=== PATIENT | female | born 1950 | race Caucasian/White ===

== ENCOUNTER → 2017-06-16 | Outpatient (CLI) | payer MEDICARE, BC ==
[2014-11-21 06:31] VITALS: BP 146/86
[~2017-06-16] MED LIST: ADVIL200 MG PO; AMOXICILLIN875 MG PO; CHILDREN'S ASPI81 M1 PO; D-31000 IU PO; DOXYCYCLINE 10100 MG PO; FLONASE NASAL S16 GM NS; MULTIPLE VITAMI1 CAP PO; SPIRIVA18 MCG IH; TUMS ULTRA1000 MG PO; VENTOLIN0.09 MG IH
== END ==
LOC: MAMMO 08:53 → RAD 09:15 → MAMMO 09:15
DX: Z12.31 Encounter for screening mammogram for malignant neoplasm of breast (principal)
CPT/HCPCS: G0202

== ENCOUNTER → 2017-06-16 | Outpatient (CLI) | payer MEDICARE, BC ==
[2014-11-21 06:31] VITALS: BP 146/86
[2017-06-16 10:52] LABS: EOS # 0.1 (0.04-0.40); EOS % 1.9 % (1.0-5.0); HEMATOCRIT 43.9 % (37.0-47.0); HEMOGLOBIN 14.4 g/dL (12.5-16.0); LYMPH# 2.2 (1.50-4.00); MEAN CELL VOLUME 94 fl (78-100); MEAN CORPUSCULAR HEMOGLOBIN 31 pg (27-31); MEAN CORPUSCULAR HGB CONC 33 g/dL (33-37); MEAN PLATELET VOLUME 9.8 fl (7.4-10.4); MONO # 0.5 (0.20-0.80); PLATELET COUNT 343 K/mm3 (130-400); RED BLOOD COUNT 4.69 M/mm3 (4.10-5.30); RED CELL DISTRIBUTION WIDTH 13.4 % (11.5-14.5); WHITE BLOOD COUNT 6.9 K/mm3 (4.8-10.8)
[2017-06-16 11:01] LABS: BUN/CREATININE RATIO 18.2 (6.0-26.0); CALCIUM 9.2 mg/dL (8.4-10.2); POTASSIUM 4.3 mmol/L (3.6-5.0); TOTAL BILIRUBIN 0.6 mg/dL (0.2-1.3)
== END ==
LOC: LAB 10:30
PROVIDERS: Nurse Practitioner Family
DX: Z13.220 Encounter for screening for lipoid disorders (principal); Z12.11 Encounter for screening for malignant neoplasm of colon; J43.2 Centrilobular emphysema; J01.41 Acute recurrent pansinusitis; Z88.1 Allergy status to other antibiotic agents

== ENCOUNTER 2017-12-07 07:32 | Emergency (ER) | payer MEDICARE, BC ==
[~2017-12-07] VITALS: Ht 170.2 cm; Wt 72.7 kg
[~2017-12-07 07:32] MED LIST changes: -D-31000 IU PO; +TUMS ULTRA ST1000 MG PO; -TUMS ULTRA1000 MG PO; +VITAMIN D32000 UNI1 PO
[2017-12-07 08:11] LABS: EOS # 0.1 (0.04-0.40); EOS % 0.7 % (1.0-5.0); HEMATOCRIT 44.9 % (37.0-47.0); HEMOGLOBIN 14.7 g/dL (12.5-16.0); LYMPH# 1.9 (1.50-4.00); MEAN CELL VOLUME 92 fl (78-100); MEAN CORPUSCULAR HEMOGLOBIN 30 pg (27-31); MEAN CORPUSCULAR HGB CONC 33 g/dL (33-37); MEAN PLATELET VOLUME 9.6 fl (7.4-10.4); MONO # 0.5 (0.20-0.80); NEU # 5.1 (1.40-6.50); PLATELET COUNT 314 K/mm3 (130-400); RED BLOOD COUNT 4.88 M/mm3 (4.10-5.30); WHITE BLOOD COUNT 7.5 K/mm3 (4.8-10.8)
[2017-12-07 08:22] LABS: ALBUMIN 3.9 g/dL (3.5-5.0); BUN/CREATININE RATIO 23.7 (6.0-26.0); CALCIUM 8.7 mg/dL (8.4-10.2); POTASSIUM 4.1 mmol/L (3.6-5.0); TOTAL BILIRUBIN 0.3 mg/dL (0.2-1.3); TOTAL PROTEIN 7.1 g/dL (6.3-8.2)
[2017-12-07 10:13] VITALS: BP 158/85
== END 2017-12-07 10:18 | disposition home or self-care (01) ==
LOC: ED 07:32
PROVIDERS: Family Medicine
DX: I10 Essential (primary) hypertension (principal); F41.9 Anxiety disorder, unspecified; J44.9 Chronic obstructive pulmonary disease, unspecified; F17.200 Nicotine dependence, unspecified, uncomplicated; Z79.82 Long term (current) use of aspirin; Z79.899 Other long term (current) drug therapy

== ENCOUNTER → 2018-06-16 | Outpatient (CLI) | payer MEDICARE, BC | LOC: MAMMO 08:38 | DX: Z12.31 Encounter for screening mammogram for malignant neoplasm of breast (principal) ==

== ENCOUNTER → 2018-06-16 | Outpatient (CLI) | payer MEDICARE, BC ==
[2018-06-16 10:37] LABS: EOS # 0.2 (0.04-0.40); EOS % 2.1 % (1.0-5.0); HEMATOCRIT 43.2 % (37.0-47.0); HEMOGLOBIN 14.1 g/dL (12.5-16.0); LYMPH# 2.5 (1.50-4.00); MEAN CELL VOLUME 92 fl (78-100); MEAN CORPUSCULAR HEMOGLOBIN 30 pg (27-31); MEAN CORPUSCULAR HGB CONC 33 g/dL (33-37); MEAN PLATELET VOLUME 9.6 fl (7.4-10.4); MONO # 0.6 (0.20-0.80); PLATELET COUNT 310 K/mm3 (130-400); RED BLOOD COUNT 4.68 M/mm3 (4.10-5.30); RED CELL DISTRIBUTION WIDTH 13.8 % (11.5-14.5); WHITE BLOOD COUNT 7.3 K/mm3 (4.8-10.8)
[2018-06-16 10:48] LABS: ALBUMIN 4.2 g/dL (3.5-5.0); TOTAL BILIRUBIN 0.4 mg/dL (0.2-1.3); TOTAL PROTEIN 6.7 g/dL (6.3-8.2)
== END ==
LOC: LAB 10:19
PROVIDERS: Family Medicine
DX: Z00.00 Encounter for general adult medical examination without abnormal findings (principal); E55.9 Vitamin D deficiency, unspecified

== ENCOUNTER → 2019-07-04 | Outpatient (CLI) | payer MEDICARE, BC ==
[2019-07-04 10:49] LABS: EOS # 0.1 (0.04-0.40); EOS % 1.2 % (1.0-5.0); HEMATOCRIT 45.7 % (37.0-47.0); HEMOGLOBIN 14.5 g/dL (12.5-16.0); LYMPH# 2.4 (1.50-4.00); MEAN CELL VOLUME 93 fl (78-100); MEAN CORPUSCULAR HEMOGLOBIN 30 pg (27-31); MEAN CORPUSCULAR HGB CONC 32 g/dL (33-37); MEAN PLATELET VOLUME 9.4 fl (7.4-10.4); MONO # 0.6 (0.20-0.80); NEU # 4.4 (1.40-6.50); PLATELET COUNT 357 K/mm3 (130-400); RED BLOOD COUNT 4.91 M/mm3 (4.10-5.30); RED CELL DISTRIBUTION WIDTH 13.8 % (11.5-14.5); WHITE BLOOD COUNT 7.5 K/mm3 (4.8-10.8)
[2019-07-04 10:57] LABS: POTASSIUM 3.9 mmol/L (3.5-5.1)
[2019-07-04 10:58] LABS: ALBUMIN 4.3 g/dL (3.4-4.8)
[2019-07-04 10:59] LABS: CALCIUM 9.7 mg/dL (8.3-10.5)
[2019-07-04 11:00] LABS: TOTAL PROTEIN 7.2 g/dL (6.2-8.1)
[2019-07-04 11:02] LABS: TOTAL BILIRUBIN 0.4 mg/dL (0.2-1.2)
== END ==
LOC: LAB 10:37
PROVIDERS: Family Medicine
DX: Z00.00 Encounter for general adult medical examination without abnormal findings (principal); I10 Essential (primary) hypertension; E55.9 Vitamin D deficiency, unspecified

== ENCOUNTER → 2020-01-03 | Outpatient (CLI) | payer MEDICARE, BC | LOC: LAB 01-02 13:36 | DX: R05 Cough (principal); R06.02 Shortness of breath; R53.83 Other fatigue; Z20.828 Contact with and (suspected) exposure to other viral communicable diseases ==

== ENCOUNTER 2020-02-03 20:49 | Emergency (ER) | payer MEDICARE, BC ==
[~2020-02-03] VITALS: Ht 170.2 cm; Wt 72.7 kg
[~2020-02-03 20:49] MED LIST changes: +ADVIL 200MG TA200 MG PO; -ADVIL200 MG PO; +ASPIRIN E.C. 8181 MG PO; -CHILDREN'S ASPI81 M1 PO; +FLONASE ALLERG9.9 ML NS; -FLONASE NASAL S16 GM NS; -MULTIPLE VITAMI1 CAP PO; +MULTIPLE VITAMI1 TA1 PO; +RT SPIRIVA INH18 MCG IH; -SPIRIVA18 MCG IH; +VITAMIN D3125 MC1 PO; -VITAMIN D32000 UNI1 PO
[2020-02-03] MEDS ORDERED: PROAIR HFA0.09 MG/AC IH (21:01)
[2020-02-03] MEDS ORDERED: CELEBREX 1100 MG/CAP PO (21:01)
[2020-02-03] MEDS ORDERED: LISINOPRIL10 MG PO (23:33)
[2020-02-03] MEDS ORDERED: IPRATROPIUM BROM3 M1 IH (23:33)
[2020-02-03] MEDS ORDERED: BACLOFEN5 MG PO (23:33)
[2020-02-03 23:52] VITALS: BP 122/67
== END 2020-02-03 23:52 | disposition home or self-care (01) ==
LOC: ED 20:49
DX: J44.9 Chronic obstructive pulmonary disease, unspecified (principal); I10 Essential (primary) hypertension; M54.2 Cervicalgia; F41.9 Anxiety disorder, unspecified; F17.210 Nicotine dependence, cigarettes, uncomplicated; Z79.82 Long term (current) use of aspirin; Z79.51 Long term (current) use of inhaled steroids

== ENCOUNTER 2020-02-07 09:07 | Emergency (ER) | payer MEDICARE, BC ==
[~2020-02-07] VITALS: Wt 78.2 kg
[~2020-02-07 09:07] MED LIST changes: +BACLOFEN5 MG PO; +CELEBREX 1100 MG/CAP PO; +IPRATROPIUM BROM3 M1 IH; +LISINOPRIL10 MG PO; +PROAIR HFA0.09 MG/AC IH
[2020-02-07 09:37] LABS: EOS # 0.3 (0.04-0.40); EOS % 3.1 % (1.0-5.0); HEMOGLOBIN 14.3 g/dL (12.5-16.0); LYMPH# 1.7 (1.50-4.00); MEAN CELL VOLUME 93 fl (78-100); MEAN CORPUSCULAR HEMOGLOBIN 30 pg (27-31); MEAN CORPUSCULAR HGB CONC 33 g/dL (33-37); MEAN PLATELET VOLUME 9.6 fl (7.4-10.4); MONO # 0.6 (0.20-0.80); NEU # 5.6 (1.40-6.50); PLATELET COUNT 311 K/mm3 (130-400); RED BLOOD COUNT 4.73 M/mm3 (4.10-5.30); WHITE BLOOD COUNT 8.2 K/mm3 (4.8-10.8)
[2020-02-07 09:52] LABS: ALBUMIN 3.9 g/dL (3.4-4.8)
[2020-02-07 09:53] LABS: POTASSIUM 4.7 mmol/L (3.5-5.1); SODIUM 136 mmol/L (136-145)
[2020-02-07 09:54] LABS: CALCIUM 9.1 mg/dL (8.3-10.5)
[2020-02-07 09:55] LABS: GLUCOSE 117 mg/dL (65-105); TOTAL PROTEIN 7.1 g/dL (6.2-8.1)
[2020-02-07 09:56] LABS: CARBON DIOXIDE 26 mmol/L (23-31)
[2020-02-07 09:57] LABS: TOTAL BILIRUBIN 0.3 mg/dL (0.2-1.2)
[2020-02-07 10:00] LABS: AST-SGOT 25 U/L (5-34)
[2020-02-07 10:01] LABS: ALT/SGPT 15 U/L (0-55)
[2020-02-07 10:15] LABS: TROPONIN-I < 0.03 ng/mL (<0.030)
[2020-02-07 11:27] VITALS: BP 157/78
[2020-02-07] MEDS ORDERED: LISINOPRIL10 MG PO (12:44)
[2020-02-08] MEDS ORDERED: NORCO 325 MG-7.1 TA1 PO ×2 (10:52)
== END 2020-02-07 11:45 | disposition other institution (70) ==
LOC: ED 09:07
PROVIDERS: Nurse Practitioner Primary Care
DX: J44.1 Chronic obstructive pulmonary disease with (acute) exacerbation (principal); I10 Essential (primary) hypertension; Z79.82 Long term (current) use of aspirin
CPT/HCPCS: J2060; J2930; Q9967

== ENCOUNTER 2020-02-07 11:16 | Inpatient (IN) | payer MEDICARE, BC ==
[~2020-02-07] VITALS: Ht 170.2 cm; Wt 78.5 kg
[2020-02-07] MEDS ORDERED: LISINOPRIL10 MG PO (12:44)
[2020-02-07 14:13] VITALS: BP 141/81
[2020-02-07 14:52] VITALS: BP 128/79
[2020-02-07 14:57] VITALS: BP 157/78
[2020-02-07 18:19] VITALS: BP 135/81
[2020-02-07 20:00] VITALS: BP 133/75
[2020-02-07 22:10] VITALS: BP 112/71
[2020-02-08 01:40] VITALS: BP 143/68
[2020-02-08 06:00] VITALS: BP 117/72
[2020-02-08 10:31] VITALS: BP 121/74
[2020-02-08] MEDS ORDERED: NORCO 325 MG-7.1 TA1 PO ×2 (10:52)
[2020-02-08 14:30] VITALS: BP 116/62
[2020-02-08 17:59] VITALS: BP 121/70
[2020-02-08 21:11] VITALS: BP 120/73
[2020-02-09 05:46] VITALS: BP 137/81
[2020-02-09 10:02] VITALS: BP 123/73
[2020-02-09 15:19] VITALS: BP 132/72
[2020-02-09 18:49] VITALS: BP 142/80
[2020-02-09 21:27] VITALS: BP 135/84
[2020-02-10 01:45] VITALS: BP 142/84
[2020-02-10 05:40] VITALS: BP 131/79
[2020-02-10 10:07] VITALS: BP 118/72
[2020-02-10] MEDS ORDERED: AZITHROMYCIN 250MGPK PO (14:19)
[2020-02-10] MEDS ORDERED: PREDNISONE10 MG PO (14:22)
[2020-02-10] MEDS ORDERED: IPRATROPIUM BROM3 M1 IH (14:23)
[2020-02-10 14:32] VITALS: BP 138/83
[2020-02-10] MEDS ORDERED: ATIVAN0.5 MG PO (15:21)
== END 2020-02-10 17:17 | disposition home or self-care (01) | DRG 192 ==
LOC: MED/SURG 11:16
PROVIDERS: ADMIT Nurse Practitioner Primary Care
DX: J44.1 Chronic obstructive pulmonary disease with (acute) exacerbation (principal); I10 Essential (primary) hypertension; M19.90 Unspecified osteoarthritis, unspecified site; R09.02 Hypoxemia; F41.9 Anxiety disorder, unspecified; F17.210 Nicotine dependence, cigarettes, uncomplicated; Z66 Do not resuscitate; Z79.82 Long term (current) use of aspirin; Z88.1 Allergy status to other antibiotic agents
CPT/HCPCS: C9113; J0456; J1650; J2930; J7050; J7512

== ENCOUNTER → 2020-04-25 | Outpatient (CLI) | payer MEDICARE, BC ==
[~2020-04-25] MED LIST changes: +ATIVAN0.5 MG PO; +AZITHROMYCIN 250MGPK PO; +BREZTRI AEROS10.7 GM IH; +NORCO 325 MG-7.1 TA1 PO; +PREDNISONE10 MG PO; +ZESTRIL5 M1 PO
== END ==
LOC: LAB 11:11
DX: J32.9 Chronic sinusitis, unspecified (principal)

== ENCOUNTER 2020-04-26 10:43 | Emergency (ER) | payer MEDICARE, BC ==
[~2020-04-26] VITALS: Ht 170.2 cm; Wt 80.9 kg
[~2020-04-26 10:43] MED LIST changes: -BREZTRI AEROS10.7 GM IH; -ZESTRIL5 M1 PO
[2020-04-26] MEDS ORDERED: BREZTRI AEROS10.7 GM IH (10:59)
[2020-04-26] MEDS ORDERED: ZESTRIL5 M1 PO (10:59)
[2020-04-26 12:00] LABS: EOS # 0.1 (0.04-0.40); EOS % 1.6 % (1.0-5.0); HEMATOCRIT 40.7 % (37.0-47.0); HEMOGLOBIN 12.6 g/dL (12.5-16.0); LYMPH# 1.8 (1.50-4.00); MEAN CELL VOLUME 98 fl (78-100); MEAN CORPUSCULAR HEMOGLOBIN 30 pg (27-31); MEAN CORPUSCULAR HGB CONC 31 g/dL (33-37); MEAN PLATELET VOLUME 8.9 fl (7.4-10.4); MONO # 0.6 (0.20-0.80); NEU # 5.4 (1.40-6.50); PLATELET COUNT 386 K/mm3 (130-400); RED BLOOD COUNT 4.15 M/mm3 (4.10-5.30); RED CELL DISTRIBUTION WIDTH 14.1 % (11.5-14.5)
[2020-04-26 12:12] LABS: ALBUMIN 4.2 g/dL (3.4-4.8); POTASSIUM 4.2 mmol/L (3.5-5.1); SODIUM 139 mmol/L (136-145)
[2020-04-26 12:13] LABS: CALCIUM 9.6 mg/dL (8.3-10.5)
[2020-04-26 12:14] LABS: GLUCOSE 95 mg/dL (65-105); TOTAL PROTEIN 7.4 g/dL (6.2-8.1)
[2020-04-26 12:15] LABS: CARBON DIOXIDE 28 mmol/L (23-31)
[2020-04-26 12:16] LABS: TOTAL BILIRUBIN 0.4 mg/dL (0.2-1.2)
[2020-04-26 12:17] LABS: D-DIMER 0.69 mg/L FEU (0.15-0.50)
[2020-04-26 12:19] LABS: AST-SGOT 28 U/L (5-34)
[2020-04-26 12:21] LABS: ALT/SGPT 28 U/L (0-55)
[2020-04-26 12:29] LABS: TROPONIN-I < 0.03 ng/mL (<0.030)
[2020-04-26 12:31] LABS: URINE APPEARANCE CLEAR; URINE BILIRUBIN NEGATIVE (NEGATIVE); URINE BLOOD TRACE (NEGATIVE); URINE COLOR YELLOW; URINE GLUCOSE NEGATIVE (NEGATIVE); URINE KETONE NEGATIVE (NEGATIVE); URINE LEUKOCYTE ESTERASE NEGATIVE (NEGATIVE); URINE NITRATE NEGATIVE (NEGATIVE); URINE PROTEIN(semi-quant) TRACE mg/dL (NEGATIVE); URINE UROBILINOGEN NORMAL (NORMAL)
[2020-04-26] MEDS ORDERED: PREDNISONE10 MG PO (12:55)
[2020-04-26] MEDS ORDERED: AZITHROMYCIN 250MGPK PO (13:00)
[2020-04-26 13:04] LABS: ERYTHROCYTE SEDIMENTATION RATE 43 mm/hr (0-30)
[2020-04-26 13:24] VITALS: BP 143/86
== END 2020-04-26 13:06 | disposition home or self-care (01) ==
LOC: ED 10:43
PROVIDERS: Nurse Practitioner Family
DX: J44.1 Chronic obstructive pulmonary disease with (acute) exacerbation (principal); R06.00 Dyspnea, unspecified; I10 Essential (primary) hypertension; Z20.828 Contact with and (suspected) exposure to other viral communicable diseases; Z87.891 Personal history of nicotine dependence; Z88.1 Allergy status to other antibiotic agents
CPT/HCPCS: J2930; J7030

== ENCOUNTER 2020-05-14 15:51 | Observation (INO) | payer MEDICARE, BC ==
[~2020-05-14] VITALS: Ht 170.2 cm; Wt 80.5 kg
[~2020-05-14 15:51] MED LIST changes: +BREZTRI AEROS10.7 GM IH; +ZESTRIL5 M1 PO
[2020-05-14 17:29] VITALS: BP 136/79
[2020-05-14 17:39] VITALS: BP 136/79
[2020-05-14] MEDS ORDERED: PREDNISONE10 MG PO (17:43)
[2020-05-14] MEDS ORDERED: MUCINEX1200 MG PO (17:44)
[2020-05-14 18:01] VITALS: BP 136/79
--- NOTE | 2020-05-14 19:32 | NUR ---
Report received from Jennifer PIERRE. Patient resting supine in bed with HOB elevated 30 degrees. A/O x4. Denies pain except "sore" in L nare where Rhino Rocket is in place. No active bleeding noted to L nare. Oxygen applied at 2L/NC per home routine. Uses home inhaler, time changed to home schedule of . Assessment completed. Bed alarm on. Call light in reach.
[2020-05-14 22:29] VITALS: BP 111/69
--- NOTE | 2020-05-14 23:29 | NUR ---
Requesting additional Tylenol for neck and head pain. Advised would have to wait another hour for next dose. States "I coughed up my stuff and passed a blood clot, probably from here (points to R nare). Has some intermittent oozing from L nare where rhino rocket is placed. Warren Garrett APRN notified of above. NNO at this time. Continue to monitor.
--- NOTE | 2020-05-15 00:30 | NUR ---
Continues to have neck/head ache. L nare painful with rhino rocket in place. Medicated with Tylenol at this time.
[2020-05-15 01:58] VITALS: BP 126/73
--- NOTE | 2020-05-15 02:00 | NUR ---
C/O'S nausea, requests and given saltine crackers. [employer] reports patient takes oxygen off intermittently. SAO2 93% on RA.
--- NOTE | 2020-05-15 03:33 | NUR ---
Up to BR with SBA. Gait steady. States crackers helped upset stomach. Continues to have head/neck pain 5/10. Utilizing Tylenol PRN. Rhino Rocket in place to Darryl darnell.
--- NOTE | 2020-05-15 05:48 | NUR ---
AM medications taken. Offered Tylenol for H/A and neck pain. Declined. States "it makes me crazy". States neck pain has improved. Rhino rocket in place to L nare with oozing at times.
[2020-05-15 06:00] VITALS: BP 107/70
[2020-05-15 06:01] LABS: EOS # 0.1 (0.04-0.40); EOS % 1.4 % (1.0-5.0); HEMATOCRIT 28.8 % (37.0-47.0); HEMOGLOBIN 8.7 g/dL (12.5-16.0); LYMPH# 2.3 (1.50-4.00); MEAN CELL VOLUME 99 fl (78-100); MEAN CORPUSCULAR HEMOGLOBIN 30 pg (27-31); MEAN CORPUSCULAR HGB CONC 30 g/dL (33-37); MEAN PLATELET VOLUME 9.4 fl (7.4-10.4); MONO # 0.9 (0.20-0.80); NEU # 6.3 (1.40-6.50); PLATELET COUNT 325 K/mm3 (130-400); RED BLOOD COUNT 2.92 M/mm3 (4.10-5.30); RED CELL DISTRIBUTION WIDTH 14.1 % (11.5-14.5); WHITE BLOOD COUNT 9.6 K/mm3 (4.8-10.8)
--- NOTE | 2020-05-15 07:01 | NUR ---
Report to Nichol PIERRE.
--- NOTE | 2020-05-15 08:30 | NUR ---
Octavio Cox APRN notified of Hgb drop to 8.7
[2020-05-15 10:14] VITALS: BP 130/80
[2020-05-15 13:44] VITALS: BP 117/43
--- NOTE | 2020-05-15 13:58 | NUR ---
Octavio Cox APRN and Riley Saleh PA-C at bedside. Both notified of patient's c/o headache and anxiety r/t the unknown with being hospitalized.
[2020-05-15 17:34] VITALS: BP 125/85
--- NOTE | 2020-05-15 19:00 | NUR ---
Report received from Nichol PIERRE. Patient resting supine in bed with HOB elevated 45 degrees. [address] rocket in place to L nare with some oozing of blood noted. Oxygen in place at 2L/NC. Continues to have headache 5/10, states neck pain improved with heat pad. Assessment completed. Up to BR with SBA, gait steady with no device. Voids 125 ML of clear yellow urine. Back to bed. Provider notified of continued H/A and patient refusal to take Tylenol because it makes her "crazy".
--- NOTE | 2020-05-15 20:09 | NUR ---
Scheduled HS medications given now. PRN Ativan and Tramadol 50 MG given for pain and sleep.
[2020-05-15 21:50] VITALS: BP 112/67
--- NOTE | 2020-05-15 21:53 | NUR ---
Requests 2nd Tramadol. States H/A is down to 09/05 but still "throbbing" States she slept for an hour after first Tramadol and Ativan given.
--- NOTE | 2020-05-16 00:44 | NUR ---
Report to Paula PIERRE.
[2020-05-16 01:26] VITALS: BP 131/71
[2020-05-16 05:03] VITALS: BP 134/69
[2020-05-16 05:55] LABS: EOS # 0.2 (0.04-0.40); EOS % 1.7 % (1.0-5.0); HEMATOCRIT 27.5 % (37.0-47.0); HEMOGLOBIN 8.4 g/dL (12.5-16.0); LYMPH# 2.7 (1.50-4.00); MEAN CELL VOLUME 100 fl (78-100); MEAN CORPUSCULAR HEMOGLOBIN 31 pg (27-31); MEAN CORPUSCULAR HGB CONC 31 g/dL (33-37); MEAN PLATELET VOLUME 9.3 fl (7.4-10.4); MONO # 1.2 (0.20-0.80); NEU # 6.3 (1.40-6.50); PLATELET COUNT 310 K/mm3 (130-400); RED BLOOD COUNT 2.75 M/mm3 (4.10-5.30); RED CELL DISTRIBUTION WIDTH 14.3 % (11.5-14.5); WHITE BLOOD COUNT 10.4 K/mm3 (4.8-10.8)
--- NOTE | 2020-05-16 06:34 | NUR ---
THIS NURSE IN ROOM. INHALER ADMINISTERED PER ORDER. PATIENT'S RHINO ROCKET IN PLACE. NO ACTIVE BLEEDING. PATIENT DENIES ANY PAIN OR DISCOMFORTS. CALL LIGHT WITHIN REACH. BED ALARM ON.
--- NOTE | 2020-05-16 08:35 | NUR ---
RHINO ROCKET REMOVED BY KAI SALDIVAR AT THIS TIME, PT TOLERATED REMOVAL WELL, NO BLEEDING AT THIS TIME
[2020-05-16 09:47] VITALS: BP 112/76
--- NOTE | 2020-05-16 11:52 | NUR ---
PT AMBULATING IN HALLS, NO BLEEDING TO LEFT NARE UPON REMOVE OF RHINO ROCKET, HOME O2 [employer] DELIVERED A "HUMIDIFIER" FOR HOME O2 USE PER PT REQUEST, HEAT PAD APPLIED TO NECK FOR CHRONIC PAIN, DENIES FURTHER NEEDS AT THIS TIME
[2020-05-16] MEDS ORDERED: FLONASE ALLERG9.9 ML NS (12:35)
[2020-05-16 14:12] VITALS: BP 121/76
--- NOTE | 2020-05-16 15:10 | NUR ---
DC INSTRUCTIONS REVIEWED WITH PATIENT. ID BAND REMOVED FROM WRIST. PACKING UP BELONGINGS WITH MOBILE SALES ASSISTANT.
--- NOTE | 2020-05-16 16:10 | NUR ---
PT ESCORTED TO FRONT DOOR VIA WHEELCHAIR, ALL BELONGINGS SENT WITH PT, DENIES FURTHER QUESTIONS OR NEEDS, DAUGHTER PROVIDING TRANSPORTATION HOME, PT STABLE
[2020-05-22] MEDS ORDERED: PREDNISONE10 MG PO (17:12)
== END 2020-05-16 16:12 | disposition home or self-care (01) ==
LOC: MED/SURG 15:55
PROVIDERS: Internal Medicine; ADMIT Physician Assistant
DX: R04.0 Epistaxis (principal); J44.9 Chronic obstructive pulmonary disease, unspecified; I10 Essential (primary) hypertension; Z87.891 Personal history of nicotine dependence; Z88.1 Allergy status to other antibiotic agents; D64.9 Anemia, unspecified
CPT/HCPCS: G0378; G0379; J7512

== ENCOUNTER → 2020-05-22 | Outpatient (CLI) | payer MEDICARE, BC ==
[2020-05-16 14:12] VITALS: BP 121/76
[~2020-05-22] MED LIST changes: +MUCINEX1200 MG PO
[2020-05-22 11:02] LABS: HEMATOCRIT 30.8 % (37.0-47.0); HEMOGLOBIN 9.2 g/dL (12.5-16.0); MEAN PLATELET VOLUME 8.8 fl (7.4-10.4); RED BLOOD COUNT 3.07 M/mm3 (4.10-5.30); WHITE BLOOD COUNT 8.9 K/mm3 (4.8-10.8)
== END ==
LOC: LAB 10:36
PROVIDERS: Physician Assistant
DX: D64.9 Anemia, unspecified (principal)

== ENCOUNTER 2020-07-26 07:33 | Emergency (ER) | payer MEDICARE, BC ==
[2020-07-26] MEDS ORDERED: PREDNISONE10 MG (07:44)
[2020-07-26 08:31] LABS: HEMATOCRIT 42.2 % (37.0-47.0); HEMOGLOBIN 12.8 g/dL (12.5-16.0); MEAN CELL VOLUME 93 fl (78-100); MEAN CORPUSCULAR HEMOGLOBIN 28 pg (27-31); MEAN CORPUSCULAR HGB CONC 30 g/dL (33-37); MEAN PLATELET VOLUME 9.7 fl (7.4-10.4); PLATELET COUNT 335 K/mm3 (130-400); RED BLOOD COUNT 4.53 M/mm3 (4.10-5.30); RED CELL DISTRIBUTION WIDTH 15.4 % (11.5-14.5); WHITE BLOOD COUNT 10.1 K/mm3 (4.8-10.8)
[2020-07-26 08:35] LABS: ALBUMIN 3.9 g/dL (3.4-4.8); POTASSIUM 4.1 mmol/L (3.5-5.1); SODIUM 140 mmol/L (136-145)
[2020-07-26 08:36] LABS: CALCIUM 9.4 mg/dL (8.3-10.5)
[2020-07-26 08:37] LABS: GLUCOSE 97 mg/dL (65-105)
[2020-07-26 08:38] LABS: TOTAL PROTEIN 6.3 g/dL (6.2-8.1)
[2020-07-26 08:39] LABS: CARBON DIOXIDE 32 mmol/L (23-31); TOTAL BILIRUBIN 0.3 mg/dL (0.2-1.2)
[2020-07-26 08:43] LABS: AST-SGOT 19 U/L (5-34)
[2020-07-26 08:44] LABS: ALT/SGPT 22 U/L (0-55)
[2020-07-26 08:47] LABS: D-DIMER 0.34 mg/L FEU (0.15-0.50)
[2020-07-26 08:52] LABS: TROPONIN-I < 0.03 ng/mL (<0.030)
[2020-07-26 09:01] LABS: BAND 1 % (0-10); LYMPHOCYTE 13 % (20-51); MONOCYTE 4 % (3-10); NEUTROPHILS 79 % (42-75); TARGET CELLS 3+
[2020-07-26] MEDS ORDERED: CELEXA 20MG20 MG/TA1 PO (11:39)
[2020-07-26] MEDS ORDERED: CLONAZEPAM0.25 MG PO (11:39)
[2020-07-26 11:55] VITALS: BP 123/71
[2020-07-26 12:14] LABS: URINE WBC 0 /hpf (0-3)
[2020-07-26 12:47] LABS: PH-URINE 6.5 (5.0 - 8.0); URINE APPEARANCE CLEAR; URINE BILIRUBIN NEGATIVE (NEGATIVE); URINE COLOR YELLOW; URINE GLUCOSE NEGATIVE (NEGATIVE); URINE KETONE 1+ (NEGATIVE); URINE NITRATE NEGATIVE (NEGATIVE); URINE PROTEIN(semi-quant) NEGATIVE (NEGATIVE); URINE UROBILINOGEN NORMAL (NORMAL)
[2020-07-26 12:48] LABS: URINE BLOOD 50 ery/uL (NEGATIVE); URINE LEUKOCYTE ESTERASE NEGATIVE (NEGATIVE)
== END 2020-07-26 12:22 | disposition home or self-care (01) ==
LOC: ED 07:33
PROVIDERS: Physician Assistant
DX: F41.9 Anxiety disorder, unspecified (principal); Z20.822 Contact with and (suspected) exposure to COVID-19; J44.9 Chronic obstructive pulmonary disease, unspecified; Z79.51 Long term (current) use of inhaled steroids; Z79.52 Long term (current) use of systemic steroids; Z88.1 Allergy status to other antibiotic agents
CPT/HCPCS: J2060

== ENCOUNTER 2020-07-30 17:06 | Emergency (ER) | payer MEDICARE, BC ==
[~2020-07-30] VITALS: Ht 170.2 cm; Wt 81.8 kg
[~2020-07-30 17:06] MED LIST changes: +CELEXA 20MG20 MG/TA1 PO; +CLONAZEPAM0.25 MG PO; +PREDNISONE10 MG
[2020-07-30 18:38] LABS: EOS # 0.3 (0.04-0.40); EOS % 3.9 % (1.0-5.0); HEMATOCRIT 40.9 % (37.0-47.0); HEMOGLOBIN 12.4 g/dL (12.5-16.0); LYMPH# 1.8 (1.50-4.00); MEAN CELL VOLUME 93 fl (78-100); MEAN CORPUSCULAR HEMOGLOBIN 28 pg (27-31); MEAN CORPUSCULAR HGB CONC 30 g/dL (33-37); MEAN PLATELET VOLUME 9.6 fl (7.4-10.4); MONO # 0.9 (0.20-0.80); NEU # 5.6 (1.40-6.50); PLATELET COUNT 331 K/mm3 (130-400); RED CELL DISTRIBUTION WIDTH 14.9 % (11.5-14.5); WHITE BLOOD COUNT 8.7 K/mm3 (4.8-10.8)
[2020-07-30 18:49] LABS: POTASSIUM 4.4 mmol/L (3.5-5.1)
[2020-07-30 18:51] LABS: TOTAL PROTEIN 6.4 g/dL (6.2-8.1)
[2020-07-30 18:53] LABS: TOTAL BILIRUBIN 0.3 mg/dL (0.2-1.2)
[2020-07-30 22:35] VITALS: BP 169/78
== END 2020-07-30 22:35 | disposition short-term general hospital (02) ==
LOC: ED 17:06
PROVIDERS: Physician Assistant
DX: J44.1 Chronic obstructive pulmonary disease with (acute) exacerbation (principal); I10 Essential (primary) hypertension; F41.9 Anxiety disorder, unspecified; Z20.822 Contact with and (suspected) exposure to COVID-19; Z88.1 Allergy status to other antibiotic agents; Z79.51 Long term (current) use of inhaled steroids
CPT/HCPCS: J2930

== ENCOUNTER 2020-10-04 14:48 | Emergency (ER) | payer MEDICARE, BC ==
[~2020-10-04 14:48] MED LIST changes: +ZESTRIL10 M1 PO; -ZESTRIL5 M1 PO
[2020-10-04 15:42] LABS: EOS # 0.4 (0.04-0.40); EOS % 4.2 % (1.0-5.0); HEMATOCRIT 38.7 % (37.0-47.0); HEMOGLOBIN 11.4 g/dL (12.5-16.0); LYMPH# 2.1 (1.50-4.00); MEAN CELL VOLUME 97 fl (78-100); MEAN CORPUSCULAR HEMOGLOBIN 29 pg (27-31); MEAN CORPUSCULAR HGB CONC 30 g/dL (33-37); MEAN PLATELET VOLUME 9.4 fl (7.4-10.4); MONO # 0.7 (0.20-0.80); NEU # 5.1 (1.40-6.50); PLATELET COUNT 321 K/mm3 (130-400); RED CELL DISTRIBUTION WIDTH 16.7 % (11.5-14.5); WHITE BLOOD COUNT 8.3 K/mm3 (4.8-10.8)
[2020-10-04 15:47] LABS: CALCIUM 8.7 mg/dL (8.3-10.5)
[2020-10-04] MEDS ORDERED: PREDNISONE10 MG PO (16:15)
[2020-10-04] MEDS ORDERED: AZITHROMYCIN 250MGPK PO (16:15)
[2020-10-04 17:00] VITALS: BP 129/87
== END 2020-10-04 16:36 | disposition home or self-care (01) ==
LOC: ED 14:48
PROVIDERS: Nurse Practitioner Family
DX: J44.0 Chronic obstructive pulmonary disease with (acute) lower respiratory infection (principal); J20.9 Acute bronchitis, unspecified; I10 Essential (primary) hypertension; F41.9 Anxiety disorder, unspecified; Z87.891 Personal history of nicotine dependence; Z79.51 Long term (current) use of inhaled steroids
CPT/HCPCS: J2930

== ENCOUNTER 2020-12-29 09:36 | Emergency (ER) | payer MEDICARE, BC ==
[2020-12-29] MEDS ORDERED: PREDNISONE20 M1 PO (09:56)
[2020-12-29] MEDS ORDERED: IPRATROPIUM BROM3 M1 IH (09:57)
[2020-12-29] MEDS ORDERED: BREZTRI AEROS10.7 GM IH (09:58)
[2020-12-29 10:37] LABS: BASO # 0.02 (0.02-0.10); EOS # 0.02 (0.04-0.40); EOS % 0.2 % (1.0-5.0); HEMOGLOBIN 13.2 g/dL (12.5-16.0); LYMPH# 1.01 (1.50-4.00); MEAN CELL VOLUME 95 fl (78-100); MEAN CORPUSCULAR HEMOGLOBIN 31 pg (27-31); MEAN CORPUSCULAR HGB CONC 32 g/dL (33-37); MEAN PLATELET VOLUME 9.1 fl (7.4-10.4); MONO # 0.42 (0.20-0.80); NEU # 11.25 (1.40-6.50); PLATELET COUNT 374 K/mm3 (130-400); RED BLOOD COUNT 4.32 M/mm3 (4.10-5.30); RED CELL DISTRIBUTION WIDTH 13.1 % (11.5-14.5); WHITE BLOOD COUNT 12.7 K/mm3 (4.8-10.8)
[2020-12-29 10:47] LABS: ALBUMIN 4.1 g/dL (3.4-4.8); POTASSIUM 4.8 mmol/L (3.5-5.1)
[2020-12-29 10:49] LABS: CALCIUM 10.9 mg/dL (8.3-10.5)
[2020-12-29 10:50] LABS: TOTAL PROTEIN 6.4 g/dL (6.2-8.1)
[2020-12-29 10:52] LABS: TOTAL BILIRUBIN 0.4 mg/dL (0.2-1.2)
[2020-12-29 11:09] LABS: URINE APPEARANCE CLEAR; URINE COLOR YELLOW
[2020-12-29 11:10] LABS: PH-URINE 5.5 (5.0 - 8.0); URINE BILIRUBIN NEGATIVE (NEGATIVE); URINE BLOOD TRACE (NEGATIVE); URINE GLUCOSE NEGATIVE (NEGATIVE); URINE KETONE NEGATIVE (NEGATIVE); URINE LEUKOCYTE ESTERASE NEGATIVE (NEGATIVE); URINE NITRATE NEGATIVE (NEGATIVE); URINE PROTEIN(semi-quant) NEGATIVE (NEGATIVE); URINE UROBILINOGEN NORMAL (NORMAL)
[2020-12-29] MEDS ORDERED: MIRALAX17 GM PO (11:37)
[2020-12-29] MEDS ORDERED: NORCO 325 MG-51 TA1 PO (11:37)
[2020-12-29 12:16] VITALS: BP 129/71
== END 2020-12-29 12:51 | disposition home or self-care (01) ==
LOC: ED 09:36
PROVIDERS: Family Medicine
DX: M47.896 Other spondylosis, lumbar region (principal); J44.9 Chronic obstructive pulmonary disease, unspecified; E83.52 Hypercalcemia; R53.81 Other malaise; I10 Essential (primary) hypertension; Z87.891 Personal history of nicotine dependence; Z79.52 Long term (current) use of systemic steroids; Z79.51 Long term (current) use of inhaled steroids; Z79.899 Other long term (current) drug therapy

== ENCOUNTER 2021-01-20 13:18 | Emergency (ER) | payer MEDICARE, BC ==
[~2021-01-20 13:18] MED LIST changes: +MIRALAX17 GM PO; +NORCO 325 MG-51 TA1 PO; +PREDNISONE20 M1 PO
[2021-01-20] MEDS ORDERED: PREDNISONE10 MG PO (13:43)
[2021-01-20 14:04] LABS: BASO # 0.01 (0.02-0.10); EOS # 0.03 (0.04-0.40); EOS % 0.3 % (1.0-5.0); HEMATOCRIT 38.2 % (37.0-47.0); HEMOGLOBIN 12.2 g/dL (12.5-16.0); LYMPH# 1.27 (1.50-4.00); MEAN CELL VOLUME 96 fl (78-100); MEAN CORPUSCULAR HEMOGLOBIN 31 pg (27-31); MEAN CORPUSCULAR HGB CONC 32 g/dL (33-37); MONO # 0.62 (0.20-0.80); NEU # 7.25 (1.40-6.50); PLATELET COUNT 356 K/mm3 (130-400); RED BLOOD COUNT 3.98 M/mm3 (4.10-5.30); RED CELL DISTRIBUTION WIDTH 13.1 % (11.5-14.5); WHITE BLOOD COUNT 9.2 K/mm3 (4.8-10.8)
[2021-01-20 14:13] LABS: POTASSIUM 4.3 mmol/L (3.5-5.1)
[2021-01-20 14:14] LABS: CALCIUM 9.7 mg/dL (8.3-10.5)
[2021-01-20 14:21] LABS: URINE APPEARANCE CLEAR; URINE COLOR YELLOW
[2021-01-20 14:22] LABS: PH-URINE 5.5 (5.0 - 8.0); URINE BILIRUBIN NEGATIVE (NEGATIVE); URINE BLOOD 250 ery/uL (NEGATIVE); URINE GLUCOSE NEGATIVE (NEGATIVE); URINE KETONE NEGATIVE (NEGATIVE); URINE LEUKOCYTE ESTERASE NEGATIVE (NEGATIVE); URINE NITRATE NEGATIVE (NEGATIVE); URINE PROTEIN(semi-quant) NEGATIVE (NEGATIVE); URINE UROBILINOGEN NORMAL (NORMAL); URINE WBC 0-1 /hpf (0-3)
[2021-01-20 15:53] VITALS: BP 149/91
== END 2021-01-20 15:36 | disposition home or self-care (01) ==
LOC: ED 13:18
PROVIDERS: Family Medicine
DX: S22.089A Unspecified fracture of T11-T12 vertebra, initial encounter for closed fracture (principal); N28.1 Cyst of kidney, acquired; J44.9 Chronic obstructive pulmonary disease, unspecified; I10 Essential (primary) hypertension; Z99.81 Dependence on supplemental oxygen; Z87.891 Personal history of nicotine dependence; Z79.899 Other long term (current) drug therapy; X58.XXXA Exposure to other specified factors, initial encounter

== ENCOUNTER → 2021-01-29 | Outpatient (CLI) | payer MEDICARE, BC ==
[~2021-01-29] MED LIST changes: +BACLOFEN10 M1 PO; +DAILY VALUE1 EACH PO; +FLUTICASON0.05 MG/AC NS; +LORAZEPAM0.5 M1 PO
== END ==
LOC: RAD 08:30
DX: S22.000D Wedge compression fracture of unspecified thoracic vertebra, subsequent encounter for fracture with routine healing (principal); M48.061 Spinal stenosis, lumbar region without neurogenic claudication

== ENCOUNTER → 2021-04-08 | Outpatient (CLI) | payer MEDICARE, BC | LOC: RAD 10:03 | DX: Z13.820 Encounter for screening for osteoporosis (principal); M85.80 Other specified disorders of bone density and structure, unspecified site; S22.000D Wedge compression fracture of unspecified thoracic vertebra, subsequent encounter for fracture with routine healing ==

== ENCOUNTER 2021-04-10 12:31 | Emergency (ER) | payer MEDICARE, BC ==
[~2021-04-10] VITALS: Ht 167.6 cm; Wt 88.3 kg
[~2021-04-10 12:31] MED LIST changes: -BACLOFEN10 M1 PO; -DAILY VALUE1 EACH PO; -FLUTICASON0.05 MG/AC NS; -LORAZEPAM0.5 M1 PO
[2021-04-10 13:10] LABS: BASO # 0.02 K/mm3 (0.02-0.10); HEMATOCRIT 38.1 % (37.0-47.0); LYMPH# 1.13 K/mm3 (1.50-4.00); MEAN CELL VOLUME 95 fl (78-100); MEAN CORPUSCULAR HEMOGLOBIN 30 pg (27-31); MEAN CORPUSCULAR HGB CONC 32 g/dL (33-37); MEAN PLATELET VOLUME 9.2 fl (7.4-10.4); MONO # 0.37 K/mm3 (0.20-0.80); NEU # 8.92 K/mm3 (1.40-6.50); PLATELET COUNT 377 K/mm3 (130-400); RED BLOOD COUNT 4.01 M/mm3 (4.10-5.30); RED CELL DISTRIBUTION WIDTH 13.6 % (11.5-14.5); WHITE BLOOD COUNT 10.5 K/mm3 (4.8-10.8)
[2021-04-10 13:20] LABS: ALBUMIN 4.1 g/dL (3.4-4.8); POTASSIUM 4.7 mmol/L (3.5-5.1); SODIUM 137 mmol/L (136-145)
[2021-04-10 13:21] LABS: CALCIUM 9.7 mg/dL (8.3-10.5)
[2021-04-10 13:22] LABS: GLUCOSE 130 mg/dL (65-105); TOTAL PROTEIN 6.3 g/dL (6.2-8.1)
[2021-04-10 13:23] LABS: CARBON DIOXIDE 25 mmol/L (23-31)
[2021-04-10 13:24] LABS: TOTAL BILIRUBIN 0.3 mg/dL (0.2-1.2)
[2021-04-10 13:27] LABS: AST-SGOT 22 U/L (5-34)
[2021-04-10 13:29] LABS: ALT/SGPT 22 U/L (0-55)
[2021-04-10 13:36] LABS: TROPONIN-I < 0.03 ng/mL (<0.030)
[2021-04-10 13:49] LABS: D-DIMER 0.76 mg/L FEU (0.15-0.50)
[2021-04-10] MEDS ORDERED: PREDNISONE20 M1 PO (15:13)
[2021-04-10 15:26] VITALS: BP 118/84
[2021-04-10] MEDS ORDERED: BACLOFEN10 M1 PO (15:37)
[2021-04-10] MEDS ORDERED: BREZTRI AEROS10.7 GM IH (15:38)
[2021-04-10] MEDS ORDERED: FLUTICASON0.05 MG/AC NS (15:39)
[2021-04-10] MEDS ORDERED: VITAMIN D3125 MC1 PO (15:39)
[2021-04-10] MEDS ORDERED: IPRATROPIUM BROM3 M1 IH (15:41)
[2021-04-10] MEDS ORDERED: LORAZEPAM0.5 M1 PO (15:42)
[2021-04-10] MEDS ORDERED: DAILY VALUE1 EACH PO (15:42)
== END 2021-04-10 15:30 | disposition home or self-care (01) ==
LOC: ED 12:31
PROVIDERS: Physician Assistant
DX: J43.2 Centrilobular emphysema (principal); I10 Essential (primary) hypertension; E66.9 Obesity, unspecified; Z87.891 Personal history of nicotine dependence; Z20.822 Contact with and (suspected) exposure to COVID-19; Z79.899 Other long term (current) drug therapy
CPT/HCPCS: J2930; Q9967

== ENCOUNTER 2021-05-15 09:51 | Outpatient (RCR) | payer MEDICARE, BC ==
[~2021-05-15 09:51] MED LIST changes: +BACLOFEN10 M1 PO; +DAILY VALUE1 EACH PO; +FLUTICASON0.05 MG/AC NS; +LORAZEPAM0.5 M1 PO
== END 2021-05-28 10:49 | disposition home or self-care (01) ==
LOC: PT 09:51
DX: S22.000D Wedge compression fracture of unspecified thoracic vertebra, subsequent encounter for fracture with routine healing (principal)

== ENCOUNTER 2021-06-07 08:50 | Emergency (ER) | payer MEDICARE, BC ==
[~2021-06-07] VITALS: Ht 167.6 cm; Wt 88.3 kg
[2021-06-07 09:23] LABS: BASO # 0.02 K/mm3 (0.02-0.10); EOS # 0.02 K/mm3 (0.04-0.40); EOS % 0.2 % (1.0-5.0); HEMATOCRIT 38.8 % (37.0-47.0); HEMOGLOBIN 11.8 g/dL (12.5-16.0); LYMPH# 0.94 K/mm3 (1.50-4.00); MEAN CELL VOLUME 100 fl (78-100); MEAN CORPUSCULAR HEMOGLOBIN 30 pg (27-31); MEAN CORPUSCULAR HGB CONC 30 g/dL (33-37); MEAN PLATELET VOLUME 9.2 fl (7.4-10.4); NEU # 10.46 K/mm3 (1.40-6.50); PLATELET COUNT 343 K/mm3 (130-400); RED BLOOD COUNT 3.89 M/mm3 (4.10-5.30); RED CELL DISTRIBUTION WIDTH 13.6 % (11.5-14.5); WHITE BLOOD COUNT 11.9 K/mm3 (4.8-10.8)
[2021-06-07 09:40] LABS: POTASSIUM 4.4 mmol/L (3.5-5.1); SODIUM 141 mmol/L (136-145)
[2021-06-07 09:41] LABS: CALCIUM 9.1 mg/dL (8.3-10.5)
[2021-06-07 09:42] LABS: GLUCOSE 126 mg/dL (65-105); TOTAL PROTEIN 6.3 g/dL (6.2-8.1)
[2021-06-07 09:43] LABS: CARBON DIOXIDE 25 mmol/L (23-31)
[2021-06-07 09:44] LABS: TOTAL BILIRUBIN 0.3 mg/dL (0.2-1.2)
[2021-06-07 09:47] LABS: AST-SGOT 18 U/L (5-34)
[2021-06-07 09:49] LABS: ALT/SGPT 24 U/L (0-55)
[2021-06-07 10:02] LABS: TROPONIN-I < 0.03 ng/mL (<0.030)
[2021-06-07 10:50] LABS: URINE APPEARANCE CLEAR; URINE BILIRUBIN NEGATIVE (NEGATIVE); URINE BLOOD TRACE (NEGATIVE); URINE COLOR YELLOW; URINE GLUCOSE NEGATIVE (NEGATIVE); URINE KETONE NEGATIVE (NEGATIVE); URINE LEUKOCYTE ESTERASE NEGATIVE (NEGATIVE); URINE MUCUS PRESENT (NOT PRESENT); URINE NITRATE NEGATIVE (NEGATIVE); URINE PROTEIN(semi-quant) TRACE mg/dL (NEGATIVE); URINE UROBILINOGEN NORMAL (NORMAL)
[2021-06-07] MEDS ORDERED: LIDODERM1 EACH TP (12:04)
[2021-06-07] MEDS ORDERED: NORCO 325 MG-7.1 TA1 PO (12:04)
[2021-06-07 12:17] VITALS: BP 153/85
== END 2021-06-07 12:34 | disposition home or self-care (01) ==
LOC: ED 08:50
PROVIDERS: Nurse Practitioner
DX: S22.068A Other fracture of T7-T8 thoracic vertebra, initial encounter for closed fracture (principal); J44.1 Chronic obstructive pulmonary disease with (acute) exacerbation; J40 Bronchitis, not specified as acute or chronic; F41.1 Generalized anxiety disorder; I10 Essential (primary) hypertension; E66.9 Obesity, unspecified; Z79.899 Other long term (current) drug therapy; Z79.51 Long term (current) use of inhaled steroids; Z79.52 Long term (current) use of systemic steroids; Z68.31 Body mass index [BMI] 31.0-31.9, adult; X58.XXXA Exposure to other specified factors, initial encounter

== ENCOUNTER 2021-06-15 16:45 | Observation (INO) | payer MEDICARE, BC ==
[~2021-06-15] VITALS: Ht 170.2 cm; Wt 89.1 kg
[~2021-06-15 16:45] MED LIST changes: +LIDODERM1 EACH TP
[2021-06-15] MEDS ORDERED: ACETAMINOPHEN-H1 TA2 PO (17:54)
[2021-06-15] MEDS ORDERED: MUCINEX 60600 MG/TA1 PO (17:59)
[2021-06-15 18:50] LABS: BASO # 0.01 K/mm3 (0.02-0.10); EOS # 0.01 K/mm3 (0.04-0.40); EOS % 0.1 % (1.0-5.0); HEMOGLOBIN 11.2 g/dL (12.5-16.0); LYMPH# 1.54 K/mm3 (1.50-4.00); MEAN CELL VOLUME 98 fl (78-100); MEAN CORPUSCULAR HEMOGLOBIN 31 pg (27-31); MEAN CORPUSCULAR HGB CONC 31 g/dL (33-37); MEAN PLATELET VOLUME 9.3 fl (7.4-10.4); MONO # 0.87 K/mm3 (0.20-0.80); NEU # 7.94 K/mm3 (1.40-6.50); PLATELET COUNT 360 K/mm3 (130-400); RED BLOOD COUNT 3.67 M/mm3 (4.10-5.30); RED CELL DISTRIBUTION WIDTH 13.5 % (11.5-14.5); WHITE BLOOD COUNT 10.4 K/mm3 (4.8-10.8)
[2021-06-15 19:00] LABS: POTASSIUM 4.5 mmol/L (3.5-5.1)
[2021-06-15 19:01] LABS: CALCIUM 9.3 mg/dL (8.3-10.5)
[2021-06-15 19:02] LABS: TOTAL PROTEIN 6.3 g/dL (6.2-8.1)
[2021-06-15 19:04] LABS: TOTAL BILIRUBIN 0.3 mg/dL (0.2-1.2)
[2021-06-15 19:43] LABS: URINE APPEARANCE CLEAR; URINE BILIRUBIN NEGATIVE (NEGATIVE); URINE BLOOD 250 ery/uL (NEGATIVE); URINE COLOR YELLOW; URINE GLUCOSE NEGATIVE (NEGATIVE); URINE KETONE 1+ (NEGATIVE); URINE LEUKOCYTE ESTERASE NEGATIVE (NEGATIVE); URINE NITRATE NEGATIVE (NEGATIVE); URINE PROTEIN(semi-quant) 1+ mg/dL (NEGATIVE); URINE UROBILINOGEN NORMAL (NORMAL); URINE WBC 0-1 /hpf (0-3)
[2021-06-15 19:44] LABS: URINE MUCUS PRESENT (NOT PRESENT)
[2021-06-15 22:00] VITALS: BP 150/72
[2021-06-16 02:04] VITALS: BP 129/76
[2021-06-16 06:18] VITALS: BP 161/75
[2021-06-16 09:43] VITALS: BP 135/86
[2021-06-16 13:48] VITALS: BP 162/81
[2021-06-16] MEDS ORDERED: NORCO 325 MG-7.1 TA1 PO (17:27)
[2021-06-16 17:31] VITALS: BP 140/83
== END 2021-06-16 18:00 | disposition home or self-care (01) ==
LOC: ED 16:45 → MED/SURG 22:11
PROVIDERS: ADMIT Family Medicine
DX: S22.060A Wedge compression fracture of T7-T8 vertebra, initial encounter for closed fracture (principal); X58.XXXA Exposure to other specified factors, initial encounter; J43.9 Emphysema, unspecified; F41.9 Anxiety disorder, unspecified; Z98.1 Arthrodesis status; Z99.81 Dependence on supplemental oxygen; Z79.899 Other long term (current) drug therapy; Z79.51 Long term (current) use of inhaled steroids; F41.1 Generalized anxiety disorder; F41.8 Other specified anxiety disorders
CPT/HCPCS: G0378; J1650; J7512

== ENCOUNTER 2021-07-16 11:50 | Emergency (ER) | payer MEDICARE, BC ==
[~2021-07-16] VITALS: Ht 167.6 cm; Wt 87.2 kg
[~2021-07-16 11:50] MED LIST changes: +ACETAMINOPHEN-H1 TA2 PO; +MUCINEX 60600 MG/TA1 PO
[2021-07-16] MEDS ORDERED: DALIRESP500 MCG PO (12:47)
[2021-07-16] MEDS ORDERED: NEURONTIN300 MG/CAP PO (12:48)
[2021-07-16] MEDS ORDERED: LORAZEPAM0.5 M1 PO (12:51)
[2021-07-16] MEDS ORDERED: ROXICODONE 55 MG/TAB PO (12:54)
[2021-07-16] MEDS ORDERED: POLYETHYLENE GL PO (12:57)
[2021-07-16] MEDS ORDERED: PREDNISONE20 M1 PO (12:58)
[2021-07-16 13:14] LABS: BASO # 0.03 K/mm3 (0.02-0.10); EOS # 0.09 K/mm3 (0.04-0.40); EOS % 1.1 % (1.0-5.0); HEMATOCRIT 34.7 % (37.0-47.0); HEMOGLOBIN 10.4 g/dL (12.5-16.0); LYMPH# 0.72 K/mm3 (1.50-4.00); MEAN CELL VOLUME 100 fl (78-100); MEAN CORPUSCULAR HEMOGLOBIN 30 pg (27-31); MEAN CORPUSCULAR HGB CONC 30 g/dL (33-37); MEAN PLATELET VOLUME 9.1 fl (7.4-10.4); MONO # 0.57 K/mm3 (0.20-0.80); PLATELET COUNT 315 K/mm3 (130-400); RED BLOOD COUNT 3.46 M/mm3 (4.10-5.30); RED CELL DISTRIBUTION WIDTH 14.4 % (11.5-14.5); WHITE BLOOD COUNT 7.9 K/mm3 (4.8-10.8)
[2021-07-16 13:25] LABS: ALBUMIN 3.7 g/dL (3.4-4.8)
[2021-07-16 13:26] LABS: CALCIUM 9.2 mg/dL (8.3-10.5)
[2021-07-16 13:28] LABS: TOTAL PROTEIN 5.7 g/dL (6.2-8.1)
[2021-07-16 13:29] LABS: TOTAL BILIRUBIN 0.4 mg/dL (0.2-1.2)
[2021-07-16 15:27] LABS: URINE APPEARANCE CLEAR; URINE BILIRUBIN NEGATIVE (NEGATIVE); URINE COLOR LT YELLOW; URINE GLUCOSE NEGATIVE (NEGATIVE); URINE KETONE 1+ (NEGATIVE); URINE PROTEIN(semi-quant) TRACE (NEGATIVE); URINE UROBILINOGEN NORMAL (NORMAL)
[2021-07-16 15:28] LABS: URINE BLOOD 50 ery/uL (NEGATIVE); URINE LEUKOCYTE ESTERASE TRACE (NEGATIVE); URINE NITRATE NEGATIVE (NEGATIVE)
[2021-07-16] MEDS ORDERED: LASIX20 M1 PO (15:56)
[2021-07-16] MEDS ORDERED: PREDNISONE20 MG PO (15:56)
[2021-07-16] MEDS ORDERED: ZITHROMAX Z PA250 MG PO (15:56)
[2021-07-16] MEDS ORDERED: POTASSIUM CHLO20 ME4 PO (15:56)
[2021-07-16 16:49] VITALS: BP 127/74
== END 2021-07-16 16:46 | disposition home or self-care (01) ==
LOC: ED 11:50
PROVIDERS: Physician Assistant
DX: S22.069A Unspecified fracture of T7-T8 vertebra, initial encounter for closed fracture (principal); J44.1 Chronic obstructive pulmonary disease with (acute) exacerbation; R60.0 Localized edema; I10 Essential (primary) hypertension; E66.9 Obesity, unspecified; F41.1 Generalized anxiety disorder; Z87.891 Personal history of nicotine dependence; Z79.899 Other long term (current) drug therapy; Z20.822 Contact with and (suspected) exposure to COVID-19; X58.XXXA Exposure to other specified factors, initial encounter
CPT/HCPCS: J1940; J2930

== ENCOUNTER 2021-07-22 12:59 | Emergency (ER) | payer MEDICARE, BC ==
[~2021-07-22] VITALS: Wt 87.2 kg
[~2021-07-22 12:59] MED LIST changes: +DALIRESP500 MCG PO; +LASIX20 M1 PO; +NEURONTIN300 MG/CAP PO; +POLYETHYLENE GL PO; +POTASSIUM CHLO20 ME4 PO; +PREDNISONE20 MG PO; +ROXICODONE 55 MG/TAB PO; +ZITHROMAX Z PA250 MG PO
[2021-07-22 14:18] LABS: HEMATOCRIT 33.7 % (37.0-47.0); HEMOGLOBIN 10.3 g/dL (12.5-16.0); MEAN CELL VOLUME 98 fl (78-100); MEAN CORPUSCULAR HEMOGLOBIN 30 pg (27-31); MEAN CORPUSCULAR HGB CONC 31 g/dL (33-37); MEAN PLATELET VOLUME 9.2 fl (7.4-10.4); PLATELET COUNT 324 K/mm3 (130-400); RED BLOOD COUNT 3.44 M/mm3 (4.10-5.30); RED CELL DISTRIBUTION WIDTH 14.5 % (11.5-14.5); WHITE BLOOD COUNT 9.7 K/mm3 (4.8-10.8)
[2021-07-22 14:27] LABS: ALBUMIN 3.7 g/dL (3.4-4.8); POTASSIUM 4.2 mmol/L (3.5-5.1); SODIUM 139 mmol/L (136-145)
[2021-07-22 14:28] LABS: CALCIUM 9.4 mg/dL (8.3-10.5)
[2021-07-22 14:29] LABS: GLUCOSE 156 mg/dL (65-105)
[2021-07-22 14:30] LABS: TOTAL PROTEIN 5.7 g/dL (6.2-8.1)
[2021-07-22 14:31] LABS: CARBON DIOXIDE 32 mmol/L (23-31); TOTAL BILIRUBIN 0.5 mg/dL (0.2-1.2)
[2021-07-22 14:35] LABS: AST-SGOT 16 U/L (5-34)
[2021-07-22 14:36] LABS: ALT/SGPT 19 U/L (0-55)
[2021-07-22 14:46] LABS: D-DIMER 0.59 mg/L FEU (0.15-0.50); TROPONIN-I < 0.030 ng/mL (<0.030)
[2021-07-22 14:51] LABS: URINE APPEARANCE CLEAR; URINE BILIRUBIN NEGATIVE (NEGATIVE); URINE BLOOD 250 ery/uL (NEGATIVE); URINE COLOR YELLOW; URINE GLUCOSE NEGATIVE (NEGATIVE); URINE KETONE 1+ (NEGATIVE); URINE LEUKOCYTE ESTERASE TRACE (NEGATIVE); URINE NITRATE NEGATIVE (NEGATIVE); URINE PROTEIN(semi-quant) TRACE (NEGATIVE); URINE UROBILINOGEN NORMAL (NORMAL)
[2021-07-22 14:52] LABS: URINE MUCUS PRESENT (NOT PRESENT)
[2021-07-22 14:56] LABS: LYMPHOCYTE 7 % (20-51); MONOCYTE 2 % (3-10); NEUTROPHILS 91 % (42-75)
[2021-07-22] MEDS ORDERED: LASIX20 M1 PO (17:01)
[2021-07-22] MEDS ORDERED: PREDNISONE20 M1 PO (17:01)
[2021-07-22] MEDS ORDERED: POTASSIUM CHLO20 ME4 PO (17:01)
[2021-07-22 17:49] VITALS: BP 160/90
[2021-07-23] MEDS ORDERED: MYLANTA MAXIMU355 M1 PO (04:05)
[2021-07-23] MEDS ORDERED: IBUPROFEN400 M1 PO (04:06)
[2021-07-23] MEDS ORDERED: IMODIUM2 MG PO (04:07)
[2021-07-23] MEDS ORDERED: ATIVAN0.5 MG PO (04:09)
[2021-07-23] MEDS ORDERED: CALCIUM 500 +1 EAC1 PO (04:11)
[2021-07-23] MEDS ORDERED: PHENERGAN 25 TA25 MG PO (04:13)
[2021-07-23] MEDS ORDERED: PROTONIX TR40 M1 PO (04:14)
[2021-07-23] MEDS ORDERED: TYLENOL 325MG325 MG PO (04:14)
== END 2021-07-22 17:48 | disposition home or self-care (01) ==
LOC: ED 12:59
PROVIDERS: Nurse Practitioner
DX: J43.9 Emphysema, unspecified (principal); R60.0 Localized edema; E66.9 Obesity, unspecified; I10 Essential (primary) hypertension; F41.1 Generalized anxiety disorder; Z87.891 Personal history of nicotine dependence; Z20.822 Contact with and (suspected) exposure to COVID-19; Z79.899 Other long term (current) drug therapy
CPT/HCPCS: J2930; Q9967

== ENCOUNTER 2021-07-23 03:26 | Emergency (ER) | payer MEDICARE, BC ==
[~2021-07-23] VITALS: Ht 170.2 cm; Wt 87.2 kg
[2021-07-23] MEDS ORDERED: MYLANTA MAXIMU355 M1 PO (04:05)
[2021-07-23] MEDS ORDERED: IBUPROFEN400 M1 PO (04:06)
[2021-07-23] MEDS ORDERED: IMODIUM2 MG PO (04:07)
[2021-07-23] MEDS ORDERED: ATIVAN0.5 MG PO (04:09)
[2021-07-23] MEDS ORDERED: CALCIUM 500 +1 EAC1 PO (04:11)
[2021-07-23] MEDS ORDERED: PHENERGAN 25 TA25 MG PO (04:13)
[2021-07-23] MEDS ORDERED: PROTONIX TR40 M1 PO (04:14)
[2021-07-23] MEDS ORDERED: TYLENOL 325MG325 MG PO (04:14)
[2021-07-23 05:30] VITALS: BP 148/88
== END 2021-07-23 05:30 | disposition home or self-care (01) ==
LOC: ED 03:26
DX: J43.9 Emphysema, unspecified (principal); R60.0 Localized edema; I10 Essential (primary) hypertension; F41.1 Generalized anxiety disorder; E66.9 Obesity, unspecified; Z87.891 Personal history of nicotine dependence; Z68.30 Body mass index [BMI] 30.0-30.9, adult; Z79.899 Other long term (current) drug therapy